=== PATIENT | female | born 1990 | race Caucasian/White ===

== ENCOUNTER → 2017-04-08 | Outpatient (CLI) | payer OTHER ==
[~2017-04-08] MED LIST: CORLANOR5 MG PO; Cyclobenzaprine5 MG PO; IBUP600; IBUP600 PO; Imitrex50 MG PO; MAKENA250 MG/1 M IM; METO25ER PO; PRENATA CHEWAB1 EACH PO; SUMA25 PO
[2017-04-09 03:34] LABS: Source VAG/CERVIX
[2017-04-29 15:30] LABS: HPV Genotype 16 Not Detected (NOTDET); HPV Genotype 18 Not Detected (NOTDET); HPV High Risk Other Detected (NOTDET)
== END | disposition home or self-care (01) ==
LOC: LAB 09:53
PROVIDERS: Obstetrics & Gynecology
DX: Z01.419 Encounter for gynecological examination (general) (routine) without abnormal findings (principal)
CPT/HCPCS: 87624; G0123

== ENCOUNTER 2017-04-22 12:28 | Emergency (ER) | payer OTHER ==
[~2017-04-22] VITALS: Ht 160 cm; Wt 54.4 kg
[~2017-04-22 12:28] MED LIST changes: -CORLANOR5 MG PO; -Cyclobenzaprine5 MG PO; -IBUP600; -IBUP600 PO; -Imitrex50 MG PO; -METO25ER PO
[2017-04-22 13:13] LABS: BASOPHILS ABSOLUTE AUTO 0.04 K/mm3 (0.00-0.23); BASOPHILS PERCENT AUTO 1 % (0-2); EOSINOPHILS ABSOLUTE AUTO 0.07 K/mm3 (0.00-0.68); EOSINOPHILS PERCENT AUTO 1 % (0-6); Hematocrit 37.4 % (33.0-51.0); Hemoglobin 12.4 g/dL (11.5-16.0); IMMATURE GRAN ABSOLUTE AUTO 0.01 K/mm3 (0.00-0.10); IMMATURE GRAN PERCENT AUTO 0 % (0-1); LYMPHOCYTES ABSOLUTE AUTO 2.59 K/mm3 (0.84-5.20); LYMPHOCYTES PERCENT AUTO 44 % (21-46); MONOCYTES ABSOLUTE AUTO 0.38 K/mm3 (0.16-1.47); MONOCYTES PERCENT AUTO 6 % (4-13); Mean Corpuscular HGB 27.6 pg (26.0-34.0); Mean Corpuscular HGB Conc 33.2 g/dL (31.5-36.5); Mean Corpuscular Volume 83 fL (80-100); Mean Platelet Volume 10.3 fL (9.1-12.4); NEUTROPHILS ABSOLUTE AUTO 2.82 K/mm3 (1.96-9.15); NEUTROPHILS PERCENT AUTO 48 % (41-73); Platelet Count 214 K/mm3 (150-400); RDW Coefficient Variation 13.3 % (11.7-14.2); RDW Standard Deviation 40.5 fL (35.1-46.3); Red Blood Cell Count 4.49 M/mm3 (3.80-5.20); White Blood Cell Count 5.91 K/mm3 (4.00-11.30)
[2017-04-22 13:43] LABS: Alanine Aminotransfer (ALT/SGP 13 U/L (12-78); Albumin/Globulin Ratio 1.1 (0.8-1.8); Alk Phos 35 U/L (50-136); Anion Gap 6 mmol/L (6-16); Aspartate Aminotrans (AST/SGOT 8 U/L (12-37); Bilirubin, Total 0.3 mg/dL (0.1-1.0); Blood Urea Nitrogen 18 mg/dL (8-24); Bun/Creatinine Ratio 21.9 (12.0-20.0); CO2, Blood 27 mmol/L (21-32); Calcium, Blood 9.1 mg/dL (8.5-10.1); Chloride, Blood 105 mmol/L (98-108); Creatinine, Blood 0.82 mg/dL (0.40-1.00); Globulin, Blood 3.6 g/dL (2.2-4.0); Glomerular Filtration Rate >60 (60-); Glucose, Blood 89 mg/dL (70-99); Potassium, Blood 3.8 mmol/L (3.5-5.5); Sodium, Blood 138 mmol/L (136-145); Total Protein, Blood 7.6 g/dL (6.4-8.2)
[2017-04-22 13:58] LABS: Source, Urine Clean Catch
[2017-04-22 14:01] LABS: Bilirubin, Urine Neg (Neg); Blood, Urine Neg (Neg); Glucose Qualitative, Urine Neg (Neg); Ketones, Urine Neg (Neg); Leukocyte Esterase, Urine Neg (Neg); Nitrite, Urine Neg (Neg); Protein, Urine Neg (Neg); Specific Gravity, Urine 1.025 (1.003-1.022); Urobilinogen, Urine NORM (Normal)
[2017-04-22 14:11] LABS: Appearance, Urine Clear (Clear); Color, Urine Yellow (P-Yellow)
[2017-05-26] MEDS ORDERED: Imitrex50 MG PO (14:46)
[2017-05-26] MEDS ORDERED: Cyclobenzaprine5 MG PO (14:49)
[2017-05-26] MEDS ORDERED: IBUP600 (14:49)
[2017-05-26] MEDS ORDERED: IBUP600 PO (14:51)
[2017-05-26] MEDS ORDERED: METO25ER PO (14:51)
[2017-06-10] MEDS ORDERED: CORLANOR5 MG PO (15:31)
== END 2017-04-22 16:56 | disposition home or self-care (01) ==
LOC: ER 12:28
PROVIDERS: Emergency Medicine
DX: R10.2 Pelvic and perineal pain (principal); F17.210 Nicotine dependence, cigarettes, uncomplicated
CPT/HCPCS: 36415; 80053; 81000; 81003; 81025; 83690; 85025; 87086; 99283

== ENCOUNTER → 2017-05-14 | Outpatient (CLI) | payer OTHER ==
[~2017-05-14] MED LIST changes: +Cyclobenzaprine5 MG PO; +IBUP600; +IBUP600 PO; +Imitrex50 MG PO; +METO25ER PO
== END | disposition home or self-care (01) ==
LOC: LAB SHORT 07:39 → LAB 07:39
DX: N87.9 Dysplasia of cervix uteri, unspecified (principal)
CPT/HCPCS: 88305

== ENCOUNTER 2017-06-12 07:06 | Day surgery (SDC) | payer OTHER ==
[~2017-06-12] VITALS: Ht 160 cm; Wt 55.3 kg
[~2017-06-12 07:06] MED LIST changes: +CORLANOR5 MG PO
== END 2017-06-12 22:57 | disposition home or self-care (01) ==
LOC: ORSCMMR 07:06 → ORD 09:00 → ORSCMMR 09:00 → ORD 10:30 → ORSCMMR 22:57
PROVIDERS: Obstetrics & Gynecology
PROC: 0WBH4ZX Excision of Retroperitoneum, Percutaneous Endoscopic Approach, Diagnostic (ICD-10-PCS; principal; 2017-06-12 09:00)
DX: R10.2 Pelvic and perineal pain (principal); F17.210 Nicotine dependence, cigarettes, uncomplicated
CPT/HCPCS: 88305; J0171; J1100; J1885; J2250; J2405; J2710; J3010; J7120

== ENCOUNTER → 2017-08-18 | Outpatient (CLI) | payer OTHER | END | disposition home or self-care (01) | LOC: LAB SHORT 08:49 → LAB 08:49 | DX: O03.9 Complete or unspecified spontaneous abortion without complication (principal) | CPT/HCPCS: 84702 ==

== ENCOUNTER → 2017-10-31 | Outpatient (CLI) | payer OTHER ==
[2017-11-03 19:06] LABS: CHLAMYDIA TRACHOMATIS, NAA Negative (Negative); NEISSERIA GONORRHOEAE, NAA Negative (Negative)
== END ==
LOC: LAB SHORT 10:59 → LAB 10:59
PROVIDERS: Obstetrics & Gynecology
DX: Z11.3 Encounter for screening for infections with a predominantly sexual mode of transmission (principal)
CPT/HCPCS: 87491; 87591

== ENCOUNTER → 2018-03-16 | Outpatient (CLI) | payer OTHER | END | disposition home or self-care (01) | LOC: LAB SHORT 16:04 → LAB 16:04 | PROVIDERS: Obstetrics & Gynecology | DX: O42.913 Preterm premature rupture of membranes, unspecified as to length of time between rupture and onset of labor, third trimester (principal) | CPT/HCPCS: 82731 ==

== ENCOUNTER → 2018-04-14 | Outpatient (CLI) | payer OTHER | LOC: LAB SHORT 17:09 → LAB 17:09 | DX: Z34.80 Encounter for supervision of other normal pregnancy, unspecified trimester (principal) | CPT/HCPCS: 87081; 87653 ==

== ENCOUNTER 2018-05-04 04:11 | Inpatient (IN) | payer OTHER ==
[~2018-05-04] VITALS: Ht 160 cm; Wt 0.2 kg
[2018-05-04] MEDS ORDERED: EXPECTA PRENAT1 EACH PO (05:26)
[2018-05-04] MEDS ORDERED: IRON256 MG PO (05:27)
[2018-05-04 05:45] LABS: BASOPHILS ABSOLUTE AUTO 0.05 K/mm3 (0.00-0.23); BASOPHILS PERCENT AUTO 0 % (0-2); EOSINOPHILS ABSOLUTE AUTO 0.11 K/mm3 (0.00-0.68); EOSINOPHILS PERCENT AUTO 1 % (0-6); Hematocrit 31.1 % (33.0-51.0); Hemoglobin 10.1 g/dL (11.5-16.0); IMMATURE GRAN PERCENT AUTO 1 % (0-1); LYMPHOCYTES ABSOLUTE AUTO 2.67 K/mm3 (0.84-5.20); LYMPHOCYTES PERCENT AUTO 18 % (21-46); MONOCYTES ABSOLUTE AUTO 0.75 K/mm3 (0.16-1.47); MONOCYTES PERCENT AUTO 5 % (4-13); Mean Corpuscular HGB 27.5 pg (26.0-34.0); Mean Corpuscular HGB Conc 32.5 g/dL (31.5-36.5); Mean Corpuscular Volume 85 fL (80-100); Mean Platelet Volume 10.1 fL (9.1-12.4); NEUTROPHILS ABSOLUTE AUTO 10.84 K/mm3 (1.96-9.15); NEUTROPHILS PERCENT AUTO 75 % (41-73); Platelet Count 273 K/mm3 (150-400); RDW Coefficient Variation 13.5 % (11.7-14.2); RDW Standard Deviation 42.2 fL (35.1-46.3); Red Blood Cell Count 3.67 M/mm3 (3.80-5.20); White Blood Cell Count 14.52 K/mm3 (4.00-11.30)
--- NOTE | 2018-05-04 07:58 | NUR ---
[facility] AT 0700, PT LAYING IN BED, STATES BABY IS OP AND SHE DECLINES TO MOVE. DISCUSSED BALL, STANDING, WILL THINK ABOUT IT. PT IS 38 2/7, SROM CLEAR FLUID AT 0320, PLANS EPIDURAL. STATES SHE PUSHED 3 HRS WITH LAST BABY. SO "TIFFANY" AT BEDSIDE, SLEEPING ON AND OFF. PLAN TO START PITOCIN, PT READY TO START IT DARIO.
--- NOTE | 2018-05-04 16:33 | NUR ---
REPORT TO KARLA LANDEROS
--- NOTE | 2018-05-04 18:47 | NUR ---
REPORT TO ONCOMING SHIFT, NO ACUTE CHANGES.
[2018-05-05 06:51] LABS: Hematocrit 26.5 % (33.0-51.0); Hemoglobin 8.3 g/dL (11.5-16.0); Mean Corpuscular HGB 26.7 pg (26.0-34.0); Mean Corpuscular HGB Conc 31.3 g/dL (31.5-36.5); Mean Corpuscular Volume 85 fL (80-100); Mean Platelet Volume 9.8 fL (9.1-12.4); Platelet Count 205 K/mm3 (150-400); RDW Coefficient Variation 13.6 % (11.7-14.2); RDW Standard Deviation 42.2 fL (35.1-46.3); Red Blood Cell Count 3.11 M/mm3 (3.80-5.20); White Blood Cell Count 12.29 K/mm3 (4.00-11.30)
[2018-05-05] MEDS ORDERED: DOCU100 PO (12:19)
[2018-05-05] MEDS ORDERED: Percocet 5-3251 EACH PO (12:20)
[2018-05-05] MEDS ORDERED: IBUP800 PO (12:20)
[2018-05-05] MEDS ORDERED: IRON150C PO (12:21)
--- NOTE | 2018-05-05 15:14 | NUR ---
PATIENT DISCHARGED WITH BABY IN [facility], WALKED OUT BY [facility]BP RN, AT 1514.
== END 2018-05-05 15:15 | disposition home or self-care (01) | DRG 807 ==
LOC: OBS 04:11 → BC 04:14 → OBS 04:58 → BC 05:01
PROVIDERS: ADMIT Obstetrics & Gynecology
PROC: 10E0XZZ Delivery of Products of Conception, External Approach (ICD-10-PCS; principal; 2018-05-04)
PROC: 3E033VJ Introduction of Other Hormone into Peripheral Vein, Percutaneous Approach (ICD-10-PCS; 2018-05-04)
PROC: 3E0R3BZ Introduction of Anesthetic Agent into Spinal Canal, Percutaneous Approach (ICD-10-PCS; 2018-05-04)
DX: O80 Encounter for full-term uncomplicated delivery (principal); Z37.0 Single live birth; Z3A.38 38 weeks gestation of pregnancy
CPT/HCPCS: 36415; 51702; 85025; 85027; J1885; J2210; J2590; J7120

== ENCOUNTER 2018-05-07 18:30 | Emergency (ER) | payer OTHER ==
[~2018-05-07 18:30] MED LIST changes: +DOCU100 PO; +EXPECTA PRENAT1 EACH PO; +IBUP800 PO; +IRON150C PO; +IRON256 MG PO; +Percocet 5-3251 EACH PO
== END 2018-05-07 21:39 | disposition left against medical advice (07) ==
LOC: ER 18:30
DX: Z53.21 Procedure and treatment not carried out due to patient leaving prior to being seen by health care provider (principal)

== ENCOUNTER 2018-07-02 10:46 | Day surgery (SDC) | payer OTHER ==
[~2018-07-02] VITALS: Ht 160 cm; Wt 59.7 kg
--- NOTE | 2018-07-02 11:25 | NUR ---
07/02/18 1125 Leslie Cordero V PT RESTING IN BED, SIDE RAILS IN PLACE, CALL LIGHT WITHIN REACH, VSS. PT TEACHING COMPLETED. PT DENIES PAIN, NAUSEA AND QUESTIONS AT THIS TIME.
--- NOTE | 2018-07-02 12:43 | NUR ---
07/02/18 1243 An Gomez DC'D IN OR AT END OF CASE.
== END 2018-07-02 14:15 | disposition home or self-care (01) ==
LOC: ORSCSDS 10:46
PROVIDERS: Obstetrics & Gynecology
PROC: 0UB74ZZ Excision of Bilateral Fallopian Tubes, Percutaneous Endoscopic Approach (ICD-10-PCS; principal; 2018-07-02 12:00)
DX: Z30.2 Encounter for sterilization (principal); F17.210 Nicotine dependence, cigarettes, uncomplicated
CPT/HCPCS: 88302; J0330; J1100; J1885; J2250; J2405; J2704; J3010; J7120

== ENCOUNTER → 2019-02-16 | Outpatient (CLI) | payer OTHER ==
[2019-02-18 13:07] LABS: HPV 16 Negative (Negative); HPV 18 Negative (Negative); HPV OTHER HR TYPES Positive (Negative)
== END | disposition home or self-care (01) ==
LOC: LAB 12:06 → LAB SHORT 12:06
PROVIDERS: Obstetrics & Gynecology
DX: Z01.419 Encounter for gynecological examination (general) (routine) without abnormal findings (principal)
CPT/HCPCS: 87624; 87625; G0123